=== PATIENT | female | born 1965 | race Asian ===

== ENCOUNTER → 2024-04-27 12:24 | Outpatient (REF) | payer OTHER, SELFPAY | LOC: WDC 12:24 | PROVIDERS: ATTENDING PHYSICIAN Internal Medicine | DX: M81.0 Age-related osteoporosis without current pathological fracture (principal); Z12.31 Encounter for screening mammogram for malignant neoplasm of breast | CPT/HCPCS: 77063; 77067; 77080 ==

== ENCOUNTER → 2024-05-04 09:38 | Outpatient (REF) | payer OTHER, SELFPAY | LOC: RAD 09:38 | PROVIDERS: ATTENDING PHYSICIAN Internal Medicine Gastroenterology; FAMILY PHYSICIAN Internal Medicine | DX: K82.4 Cholesterolosis of gallbladder (principal) | CPT/HCPCS: 76700 ==

== ENCOUNTER 2024-05-12 14:02 | Inpatient (IN) | payer OTHER, SELFPAY ==
[2024-05-12] VITALS (8 sets, daily range): BP systolic 119–174; BP diastolic 68–92; BMI 23.8; BMI 24.6
--- NOTE | 2024-05-12 09:05 | ED.GENMED ---
History of Present Illness
<Benjamin Rolle Jr., PA-C - Last Filed: 05/12/24 13:06>
General
Chief Complaint: Breathing Problem
Source: patient
Exam Limitations: none
Time Seen by Provider: 05/12/24 09:03
Nursing documentation reviewed up to this point in time: agreed with
History of Present Illness
History of Present Illness:
59-year-old female with past medical history of asthma hypothyroidism hyperlipidemia presenting to the emergency department today with concerns of shortness of breath. Had viral syndrome starting roughly 3 days ago worsening shortness of breath
since yesterday going on into today. Noticed wheezing. Went to the urgent care was found to have a pulse ox in the high 80s which prompted her to be sent immediately to the ER for further assessment. En route she received a DuoNeb with
improvement of symptoms. Denies any specific chest pain has felt some shortness of breath. No nausea vomiting. No fevers.
Past History
<Benjamin Rolle Jr., PA-C - Last Filed: 05/12/24 13:06>
Past History
ED Past Medical History: Hypothyroidism
ED Past Surgical History: Other (thyroidectomy 2 years ago)
Social History
Tobacco: Smoker
Alcohol: Occasional
Personal:
Living: with family
Family History
Family History: Other (siater w/ hx of migraines, no hx of aneurysms.)
Review of Systems
<Benjamin Rolle Jr., PA-C - Last Filed: 05/12/24 13:06>
Review of Systems
Allergies reviewed?: Yes
All Other Systems: ROS reviewed and negative except as documented in HPI and ROS
Phy Exam
<Benjamin Rolle Jr., PA-C - Last Filed: 05/12/24 13:06>
Physical Exam
Physical Exam:
GENERAL: Alert , in no apparent distress
EYE: pupils equal and reactive
NECK: Supple, no significant adenopathy.
ENT: o/p clr, mmm.
CARDIAC: Regular rate and rhythm .
LUNGS: Diffuse inspiratory and expiratory wheezing
ABDOMEN: Soft, without focal tenderness, no r/g, no cvat
NEUROLOGICAL: Alert and oriented, no focal neuro deficits
SKIN: Warm and dry, skin intact.
MUSCULOSKELETAL: No edema, well perfused.
PSYCH: Normal and appropriate interaction.
Scores
<Benjamin Rolle Jr., PA-C - Last Filed: 05/12/24 13:06>
Heart Failure Risk
Heart Failure Risk Score: Not Applicable
Course
<Benjamin Rolle Jr., PA-C - Last Filed: 05/12/24 13:06>
Orders/Labs/Results
Orders:
Orders
05/12/24 Breakfast
NPO
Allow oral meds: Yes
Allow clear liquids: Sips of Clears
05/12/24 09:04
Dexamethasone Sod Phosphate [Decadron] 10 mg IV NOW STA
Ipratropium/Albuterol Sulfate [Duoneb] 3 ml INH R NOW STA
CR Chest - 2 Views Urgent
Comment:
Reason For Exam: cough, sob
05/12/24 09:09
Complete Blood Count/With Diff Urgent
Comprehensive Metabolic Panel Urgent
05/12/24 09:14
COVID-19 Antigen Urgent
Source: Nasal Swab
Influenza A+B Rapid Molecular Urgent
RABIA Source: Nasal Swab
Specimen Description:
05/12/24 09:40
Ipratropium/Albuterol Sulfate [Duoneb] 3 ml INH R NOW ONE
05/12/24 12:29
Albuterol Sulfate [Ventolin Nebules] 10 mg INH R NOW STA
Calcium Gluconate 1,000 mg IV PRN PRN
Magnesium Sulfate 2 Gram/50 ml [Magnesium Sulfate] 2 gram in 50 ml IV NOW
Magnesium Sulfate 4 Gram/100Ml [Magnesium Sulfate] 4 gram in 100 ml IV NOW
05/12/24 12:33
Albuterol Sulfate [Ventolin Nebules] 7.5 mg INH R NOW STA
Magnesium Sulfate 2 Gram/50 ml [Magnesium Sulfate] 2 gram in 50 ml IV NOW
Abnormal Lab Results
05/12/24
09:09
RBC 4.11 L 10^6/uL
(4.20-5.40)
MCH 32.8 H pg
(27.0-31.0)
Abs Immat Gran (auto) 0.1 H 10^3/uL
(0-0.05)
Absolute Neuts (auto) 7.2 H 10^3/uL
(1.4-6.5)
Lymphocytes % 19.8 L %
(20.5-51.1)
Glucose 106 H mg/dl
(70-99)
AST 52 H U/L
(14-36)
ALT 50 H U/L
(0-35)
05/12/24 09:09
05/12/24 09:09
Vital Signs
Initial and Last Documented VS:
Initial Vital Signs
Temp Pulse Resp BP Pulse Ox
97.8 F 76 20 174/92 93
05/12/24 09:00 05/12/24 09:00 05/12/24 09:00 05/12/24 09:00 05/12/24 09:00
Last Documented Vital Signs
Temp Pulse Resp BP Pulse Ox
97.8 F 96 17 128/82 85
05/12/24 09:00 05/12/24 12:00 05/12/24 12:00 05/12/24 12:00 05/12/24 11:45
<Forrest Flower, DO - Last Filed: 05/12/24 09:13>
Orders/Labs/Results
Orders:
Orders
05/12/24 Breakfast
NPO
Allow oral meds: Yes
Allow clear liquids: Sips of Clears
05/12/24 09:04
Dexamethasone Sod Phosphate [Decadron] 10 mg IV NOW STA
Ipratropium/Albuterol Sulfate [Duoneb] 3 ml INH R NOW STA
CR Chest - 2 Views Urgent
Comment:
Reason For Exam: cough, sob
05/12/24 09:09
Complete Blood Count/With Diff Urgent
Comprehensive Metabolic Panel Urgent
05/12/24 09:14
COVID-19 Antigen Urgent
Source: Nasal Swab
Influenza A+B Rapid Molecular Urgent
RABIA Source: Nasal Swab
Specimen Description:
05/12/24 09:40
Ipratropium/Albuterol Sulfate [Duoneb] 3 ml INH R NOW ONE
05/12/24 12:29
Albuterol Sulfate [Ventolin Nebules] 10 mg INH R NOW STA
Calcium Gluconate 1,000 mg IV PRN PRN
Magnesium Sulfate 2 Gram/50 ml [Magnesium Sulfate] 2 gram in 50 ml IV NOW
Magnesium Sulfate 4 Gram/100Ml [Magnesium Sulfate] 4 gram in 100 ml IV NOW
05/12/24 12:33
Albuterol Sulfate [Ventolin Nebules] 7.5 mg INH R NOW STA
Magnesium Sulfate 2 Gram/50 ml [Magnesium Sulfate] 2 gram in 50 ml IV NOW
Abnormal Lab Results
05/12/24
09:09
RBC 4.11 L 10^6/uL
(4.20-5.40)
MCH 32.8 H pg
(27.0-31.0)
Abs Immat Gran (auto) 0.1 H 10^3/uL
(0-0.05)
Absolute Neuts (auto) 7.2 H 10^3/uL
(1.4-6.5)
Lymphocytes % 19.8 L %
(20.5-51.1)
Glucose 106 H mg/dl
(70-99)
AST 52 H U/L
(14-36)
ALT 50 H U/L
(0-35)
05/12/24 09:09
05/12/24 09:09
Vital Signs
Initial and Last Documented VS:
Initial Vital Signs
Temp Pulse Resp BP Pulse Ox
97.8 F 76 20 174/92 93
05/12/24 09:00 05/12/24 09:00 05/12/24 09:00 05/12/24 09:00 05/12/24 09:00
Last Documented Vital Signs
Temp Pulse Resp BP Pulse Ox
97.8 F 96 17 128/82 85
05/12/24 09:00 05/12/24 12:00 05/12/24 12:00 05/12/24 12:00 05/12/24 11:45
<Benjamin Rolle Jr., PA-C - Last Filed: 05/12/24 13:06>
MDM/Problems Addressed
MDM/Problems Addressed:
59-year-old female presenting to the emergency department concerns of shortness of breath wheezing. Patient with upper respiratory symptoms over the weekend, 3 days ago with worsening shortness of breath and wheezing over the past 24 hours. Here
patient was found to have inspiratory expiratory wheezing consistent with asthma exacerbation likely secondary to viral syndrome. Patient started on dexamethasone as well as DuoNeb. Patient reassessed claims to feel somewhat better to go to the
bathroom felt very short of breath pulse ox in the high 80s patient was given another nebulizer treatment also given additional dose of magnesium. Chest x-ray without acute abnormalities patient without significant improvement over multiple hours
plan for further treatment and monitoring.
<Benjamin Rolle Jr., PA-C - Last Filed: 05/12/24 13:06>
*Critical Care Note
Total Time (30-74mins, 75-104mins- exclusive of procedures): Not Applicable
ED Attending Note
<Benjamin Rolle Jr., PA-C - Last Filed: 05/12/24 13:06>
-
Portions of this chart may have been created with voice recognition software.� Occasional wrong word or��sound alike� substitutions may have occurred due to the inherent limitations of voice recognition software.
<Forrest Flower DO - Last Filed: 05/12/24 09:13>
ED Attending Note
Patient seen and examined by attending physician: Yes
I performed the substantive portion of visit, reviewed & personally made and approve the management plan that is documented in note by myself or PRIYA.: Yes
ED Attending Note:
I have seen and evaluated the patient with a bagh-az-swdx encounter. I have spoken to the advance practicer provider and involved in the medical history, the physical exam, medical decision making.
Evaluation and management service: agree unless noted differently below.
Results interpretation: agree unless noted differently below.
Focused HPI: 59-year-old female presenting for evaluation of shortness of breath and wheezing. This was preceded by a viral syndrome. She went to urgent care and found to be mildly hypoxic. EMS provided DuoNeb and patient feeling better
Physical exam: Prolonged expiratory phase. Audible wheezing noted. Mild conversational dyspnea
Medical Decision Making: Will treat as asthma. She does have a prior history of asthma. Will continue breathing treatments and will provide steroids and obtain chest x-ray.
Discharge Plan
Departure
Patient Disposition: Admit
Date of Disposition: 05/12/24
Time of Disposition: 13:06
Admit to: Telemetry
Admit to doctor: Rhona
Presentation/result/management discussed w/ accepting MD/DO: Hospitalist
Patient with high blood pressure during this ER visit?: No
Condition: Good
Covid-19: Not Applicable
Discharge Problem:
Asthma exacerbation
Prescriptions:
No Action
levothyroxine 75 MCG tablet
75 mcg PO DAILY
alprazolam 0.25 MG tablet
0.25 mg PO DAILYPRN PRN (Reason: ANXIETY)
NyQuil 7.5-60-30-1,000 mg/30 mL Liquid
15 ml PO HSPRN PRN (Reason: CONGESTION)
cyanocobalamin (vitamin B-12) 1,000 mcg Tablet
1,000 mcg PO DAILY
Theragen Tablet
1 tab PO DAILY
ascorbic acid (vitamin C) [Vitamin C] 500 mg Tablet
500 mg PO DAILY
rosuvastatin [Crestor] 5 mg Tablet
5 mg PO QPM
Tylenol Cold Head Congest Day 5-10-325 mg Tablet
1 tab PO DAILYPRN PRN (Reason: CONGESTION)
cholecalciferol (vitamin D3) [Vitamin D3] 25 mcg (1,000 unit) Tablet
25 mcg PO DAILY
omega 2-efj-nfg-fish oil [Fish Oil] 1,200 (144-216) mg Capsule
1 cap PO DAILY
Referrals:
Javad Larson DO [Family Provider] -
Interventions
Interventions:
*Risk Screen - Suicide Last Done: 05/12/24 09:00
*General Assessment Last Done: 05/12/24 09:00
*Neglect/Abuse Screening Last Done: 05/12/24 09:00
ED- Fall Risk Assessment Last Done: 05/12/24 09:00
*ED COVID-19 Vaccine History Last Done: 05/12/24 09:00
ED- Cardiac Assessment Last Done: 05/12/24 09:00
ED- Pulmonary Assessment Last Done: 05/12/24 09:00
Discharge Date and Time
Print Language: KINYARWANDA
[2024-05-12] MEDS: DECADRON 10 MG IV (09:15)
[2024-05-12] MEDS: DUONEB 3 ML INH ×4 (09:15→19:23)
[2024-05-12 09:17] LABS: % Basophils 0.5 % (0-2); % Eosinophils 3.1 % (0-6); % Immature Granulocytes 0.5 % (0-0.5); % Lymphocytes 19.8 % (20.5-51.1); % Monocytes 5.3 % (1.7-9.3); % Neutrophils 70.8 % (42.2-75.2); Absolute Basophils 0.1 10^3/uL (0-0.2); Absolute Eosinophils 0.3 10^3/uL (0-0.7); Absolute Immature Granulocytes 0.1 10^3/uL (0-0.05); Absolute Monocytes 0.5 10^3/uL (0.1-0.6); Absolute Neutrophils 7.2 10^3/uL (1.4-6.5); Hematocrit 39.8 % (37.0-47.0); Hemoglobin 13.5 g/dL (12.0-16.0); Mean Corp Hgb Conc. 33.9 g/dL (33.0-37.0); Mean Corpuscular Hgb 32.8 pg (27.0-31.0); Mean Corpuscular Volume 96.8 fL (81.0-99.0); Mean Platelet Volume 9.1 fL (7.4-10.4); Nucleated Red Blood Cells % 0 %; Platelet Count 213 10^3/uL (130-400); Red Blood Cell Count 4.11 10^6/uL (4.20-5.40); Red Cell Dist. Width 12.3 % (11.5-14.5); White Blood Cell Count 10.1 10^3/uL (4.8-10.8)
[2024-05-12 09:31] LABS: ALT (SGPT) 50 U/L (0-35); AST (SGOT) 52 U/L (14-36); Albumin 4.7 g/dl (3.5-5.0); Alkaline Phosphatase 89 U/L (38-126); Blood Urea Nitrogen 12 mg/dl (7-17); Carbon Dioxide 26 mmol/L (22-30); Chloride 105 mmol/L (98-107); Estimated Creatinine Clearance 78 ml/min; Glucose 106 mg/dl (70-99); Potassium 3.5 mmol/L (3.5-5.1); Sodium 139 mmol/L (135-145); Total Bilirubin 0.9 mg/dl (0.2-1.3); Total Protein 7.6 g/dl (6.3-8.2); eGFR > 60.00
[2024-05-12 09:41] LABS: COVID-19 Antigen Negative (Negative)
[2024-05-12] MEDS: MAGNESIUM SULFATE 50 IV (12:37)
[2024-05-12] MEDS: VENTOLIN NEBULES 7.5 MG INH (12:37)
--- NOTE | 2024-05-12 13:32 | W.PN.UPDATE ---
Update Note
Progress Note Update
This is an addendum to the H&P written by Kandy Marie on 05/12/2024.� Patient seen and examined independently with PA.\\
59-year-old female past medical history of asthma, hypothyroidism, hyperlipidemia presenting with shortness of breath.� Had viral syndrome 3 days ago with worsening shortness of breath and wheezing.� Went to urgent care with pulse ox in the 80s.
Labs unremarkable.� Chest x-ray shows no acute cardiopulmonary process.
Presentation consistent with upper respiratory viral infection acute bronchitis/asthma exacerbation.� COVID and influenza pending.� Patient given DuoNebs, dexamethasone, magnesium.
Continue DuoNebs, dexamethasone.
--- NOTE | 2024-05-12 13:37 | HPS.HSE ---
Family Physician
-
Family Physician: Javad Larson
Chief Complaint
-
Cough and Shortness of Breath
History of Present Illness
Patient is a 59 y/o female past medical history of hypothyroidism, hyperlipidemia and remote asthma who presents with cough and shortness of breath. Patient reports cough started about 3 days ago. Last night she developed worsening shortness of
breath and wheezing. She went to urgent care this morning where she was found to be hypoxia with pulse ox in the 80s and she was sent to the emergency department for evaluation. She reports it has been many years since she has had a problem with
asthma. She has never been hospitalized for asthma, and does not use any inhalers or nebulizers at home. She denies fevers, sweats or chills.
Medical History
Past Medical History
Past Medical History: Reports Other
Additional Past Medical History:
Asthma
Hyperlipidemia
Post-Surgical Hypothyroidism
Past Surgical History: Reports Other
Additional Past Surgical History:
Partial Thyroidectomy
Social History
Tobacco: Smoker (Smokes with friends on the weekends)
Alcohol: Occasional
Family History
Family History: Not pertinent
Allergies / Home Medications
Allergies reflects when Allergies were last updated in [facility].
Home Medications with original date entered in [facility]
Allergy/Medication List:
Allergies
Allergy/AdvReac Type Severity Reaction Status Date / Time
No Known Allergies Allergy Verified 05/12/24 09:09
Home Medications
alprazolam 0.25 mg tablet 0.25 mg PO DAILYPRN PRN ANXIETY 02/23/14
levothyroxine 75 mcg tablet 75 mcg PO DAILY 02/23/14
ascorbic acid (vitamin C) 500 mg tablet (Vitamin C) 500 mg PO DAILY 05/12/24
cholecalciferol (vitamin D3) 25 mcg (1,000 unit) tablet (Vitamin D3) 25 mcg PO DAILY 05/12/24
cyanocobalamin (vitamin B-12) 1,000 mcg tablet 1,000 mcg PO DAILY 05/12/24
iotiuqwob-MLA-PF-acetaminophen 7.5 mg-60 [id number]/30mL oral liqd 15 ml PO HSPRN PRN CONGESTION 05/12/24
omega 2-zey-bbh-fish oil 1,200 mg (144 mg-216 mg) capsule (Fish Oil) 1 cap PO DAILY 05/12/24
ytmzwfbzdhexf-WP-ljgcydxmysbfb 5 mg-10 mg-325 mg tablet 1 tab PO DAILYPRN PRN CONGESTION 05/12/24
rosuvastatin 5 mg tablet (Crestor) 5 mg PO QPM 05/12/24
therapeutic multivitamin 1 tab PO DAILY 05/12/24
Review of Systems
-
A 12 point ROS was completed and negative except as noted: Yes
Constitutional: Denies Fever or Chills
Respiratory: Reports See HPI
Cardiac: Denies Chest Pain or Palpitations
Physical Exam
Vital Signs
Vital Signs
Temp Pulse Resp BP Pulse Ox
97.8 F 96 17 128/82 85
05/12/24 09:00 05/12/24 12:00 05/12/24 12:00 05/12/24 12:00 05/12/24 11:45
Physical Exam
General: Comfortable and Conversant
HEENT: Anicteric and Moist mucous membranes
Respiratory: Non Labored Respirations and Other (Faint late expiratory wheeze)
Cardiac: S1/S2 and Regular Rhythm; No Tachycardia
GI: Soft and Non Tender
Rectal: Deferred by Provider
Musculoskeletal: No Clubbing, No Cyanosis and No Edema
Skin: Warm and Dry
Neuro: Awake, Alert, Oriented and Nonfocal/grossly intact
Psych: Calm
Laboratory Results
-
05/12/24 09:09
05/12/24 09:09
Laboratory Results
Total Bilirubin 0.9 mg/dl (0.2-1.3) 05/12/24 09:09
AST 52 U/L (14-36) H 05/12/24 09:09
ALT 50 U/L (0-35) H 05/12/24 09:09
Alkaline Phosphatase 89 U/L (38-126) 05/12/24 09:09
Data Reviewed
-
Diagnostic Radiology: Report Reviewed by me
Lab Data: Labs Reviewed by me
Impression/Plan
-
Acute Hypoxic Respiratory Insufficiency secondary to Acute Bronchitis
-Monitor pulse ox
-Continue Decadron 4mg Q12h
-Continue DuoNeb QID and PRN
-Continue cough suppressant with Tessalon Perles
-Encourage smoking cessation
Post-Surgical Hypothyroidism
-Continue levothyroxine
Hyperlipidemia
-Continue Crestor
DVT proph: Lovenox
Code Status: Full Code
--- NOTE | 2024-05-12 15:58 | PTCARENOTE ---
Patient arrived to floor and ambulated to room. 96% on RA. Patient complains of ESTRAAD. 2L placed for comfort. Oriented to room. Call osman within reach.
[2024-05-12] MEDS: CRESTOR 5 MG PO (17:09)
[2024-05-12] MEDS: LOVENOX 40 MG SC (17:09)
[2024-05-12] MEDS: DECADRON 4 MG IV (21:42)
[2024-05-12] MEDS: MELATONIN 5 MG PO (22:13)
[2024-05-13] MEDS: TYLENOL 650 MG PO ×2 (02:07→11:03)
[2024-05-13 03:35] VITALS: BP 152/90
[2024-05-13] MEDS: DUONEB 3 ML INH ×3 (04:20→11:18)
[2024-05-13] MEDS: SYNTHROID 75 MCG PO (06:01)
[2024-05-13 08:00] VITALS: BP 142/89
[2024-05-13 08:23] LABS: D-Dimer < 0.27 ug/mlFEU (0.00-0.50)
[2024-05-13] MEDS: DECADRON 4 MG IV (08:41)
[2024-05-13] MEDS: VITAMIN D3 (cholecalciferol) 25 MCG PO (08:41)
[2024-05-13] MEDS: VITAMIN C 500 MG PO (08:41)
[2024-05-13 08:42] LABS: Procalcitonin < 0.05 ng/ml (0.0-0.25)
[2024-05-13] MEDS: MOTRIN 200 MG PO (11:03)
--- NOTE | 2024-05-13 11:19 | W.PN.HOSP.TC ---
Today's Communication/Plan
-
dc
Assessment / Plan
Assessment / Plan
59yo F with remote Hx of asthma, current occasional smoker, hypothyroidism, HLD came with wheezing and hypoxia for 1 day. She ggot sick 3 days prior after her daughter was also presenting with respiratory symptoms. Initially c/o throat pain that
later subsided. Wheezing resolved on the next day after admission. ambulatewd with RN with pulse O2 remaining above 90% on room air. Procalcitonin and DDimer neg (with Wells score of 0). reasonable to continue steroid taper and inhaler at home.
Medically stable for d/c
A/P:
#Upper respiratory infection (viral) with reactive airway disease
Taper steroids
use bronchodilators
Outpatient pulm
#Nicotine dependency
counseled on cessation
#HLD
#Hypothyroidism
cont home meds
#Chronic transaminitis
2/2 fatty liver disease
cont follow up with PCP
DVT ppx on SCDs
Full code
I have spent at least 36min reviewing chart, test results, communication with consultants and direct patient care
Anticipated Discharge: Today
Subjective/Interval History
-
Date of Service: May 13, 2024
Objective Data
-
Vital Signs:
Vital Signs
Temp Pulse Resp BP Pulse Ox
97.7 F 93 18 142/89 98
05/13/24 08:00 05/13/24 08:00 05/13/24 08:00 05/13/24 08:00 05/13/24 08:00
I&O
05/12/24 05/13/24 05/14/24
06:59 06:59 06:59
Intake Total 960 / 960
Balance 960 / 960
Review of Systems
-
History Source: Patient
All other systems: Reviewed and negative
Physical Exam
-
General: No Apparent Distress
HEENT: Normocephalic
Respiratory: Clear to Auscultation
Cardiac: Regular Rhythm
GI: Soft, Nontender and Nondistended
Musculoskeletal: No Clubbing, No Cyanosis and No Edema
Neuro: Awake, Alert, Oriented and AO x 3
Psych: Calm
--- NOTE | 2024-05-13 11:24 | W.DCSUMMARY ---
Discharge Summary
Discharge Data
Date of Admission: 05/12/24
Date of Discharge: 05/13/24
-
Pending Results: No
Hospital Course
59yo F with remote Hx of asthma, current occasional smoker, hypothyroidism, HLD came with wheezing and hypoxia for 1 day. She ggot sick 3 days prior after her daughter was also presenting with respiratory symptoms. Initially c/o throat pain that
later subsided. Wheezing resolved on the next day after admission. ambulatewd with RN with pulse O2 remaining above 90% on room air. Procalcitonin and DDimer neg (with Wells score of 0). reasonable to continue steroid taper and inhaler at home.
COVID-19 and Influenza PCR neg, XR without pneumonia. Medically stable for d/c
I have spent at least 36min reviewing chart, test results, communication with consultants and direct patient care
Patient was managed for:
#Upper respiratory infection (viral) with reactive airway disease
#Nicotine dependency
#HLD
#Hypothyroidism
#Chronic transaminitis
Discharge Plan
-
Patient Disposition: Home (Routine Discharge)
Discharge Diagnosis/Procedures: reactive airway disease
Diet: Low Fat
Activity: As tolerated
Driving Restrictions: As prior to admission
Referrals:
Javad Larson DO [Family Provider] -
Vazquez Lisa MD [Active] - in one to two months (for pulmonary function tests)
Prescriptions:
New
prednisone 10 mg Tablet
See Rx Instructions .ROUTE .COMPLEX Qty: 30 0RF
Rx Instructions:
Take By Mouth:
40 mg daily x3 days, 30 mg daily x3 days,
20 mg daily x3 days, 10 mg daily x3 days.
Airsupra 90-80 mcg/actuation HFA aerosol inhaler
2 inh inhalation ONCE Qty: 10.7 0RF
Rx Instructions:
as a single dose; may repeat up to 6 doses per day (12 inhalations)
Continued
levothyroxine 75 MCG tablet
75 mcg PO DAILY
alprazolam 0.25 MG tablet
0.25 mg PO DAILYPRN PRN (Reason: ANXIETY)
tmwlppnje-QDU-ZZ-acetaminophen 7.5-60-30-1,000 mg/30 mL Liquid
15 ml PO HSPRN PRN (Reason: CONGESTION)
cyanocobalamin (vitamin B-12) 1,000 mcg Tablet
1,000 mcg PO DAILY
therapeutic multivitamin Tablet
1 tab PO DAILY
ascorbic acid (vitamin C) [Vitamin C] 500 mg Tablet
500 mg PO DAILY
rosuvastatin [Crestor] 5 mg Tablet
5 mg PO QPM
oykaywsldvewx-QO-eankuojdtwrli 5-10-325 mg Tablet
1 tab PO DAILYPRN PRN (Reason: CONGESTION)
cholecalciferol (vitamin D3) [Vitamin D3] 25 mcg (1,000 unit) Tablet
25 mcg PO DAILY
omega 9-fdl-muq-fish oil [Fish Oil] 1,200 (144-216) mg Capsule
1 cap PO DAILY
Discharge Orders:
Discharge Patient (As Directed); Ordered 05/13/24
Ordered By: Loc Ahmadi
Discharge Date and Time
Print Language: COMORAN
[2024-05-13 12:05] VITALS: BP 154/75
--- NOTE | 2024-05-13 12:28 | CM ---
CM met with Merline at bedside to complete IA. She lives with her in a 2 story home with a basement. 3 steps to enter the home, 12 steps up to the 2nd floor and 12 steps down to the basement.
Merline is (I) amb and adls. She will return home at discharge with no needs. Her will drive her home. She wanted to be sure that the prescription for albuterol was written for her at discharge. Both albuterol and prednisone have been
prescribed and sent to [facility] which is her preferred pharmacy.
Plan: Discharge to home with no needs. will provide transport home.
PCP: Javad Larson
Pharm: [facility]
== END 2024-05-13 14:01 | disposition home or self-care (01) | DRG 203 ==
LOC: 4 EAST ACU 14:02
PROVIDERS: Physician Assistant; ADMITTING PHYSICIAN Hospitalist; ATTENDING PHYSICIAN Internal Medicine; EMERGENCY PHYSICIAN Student in an Organized Health Care Education/Training Program; FAMILY PHYSICIAN Internal Medicine
DX: J45.901 Unspecified asthma with (acute) exacerbation (principal); F17.200 Nicotine dependence, unspecified, uncomplicated; R09.02 Hypoxemia; R06.89 Other abnormalities of breathing; E89.0 Postprocedural hypothyroidism; E78.5 Hyperlipidemia, unspecified
CPT/HCPCS: 71046; 80053; 84145; 85025; 85379; 87502; 87811; 94640; 94644; 96365; 96375; 99285